=== PATIENT | female | born 1995 | race Caucasian/White ===

== ENCOUNTER 2021-07-20 07:49 | Inpatient (IN) | payer OTHER ==
[~2021-07-20] VITALS: Ht 167.6 cm; Wt 105.6 kg
[2021-07-20 09:00] LABS: HEMOGLOBIN 13.1 g/dl (12.0-15.5); MEAN CORPUSCULAR HEMOGLOBIN 31.6 pg (27.0-33.0); MEAN CORPUSCULAR HGB CONC 33.6 g/dl (32.0-36.5); MEAN CORPUSCULAR VOLUME 94.2 fl (80.0-96.0); PLATELET COUNT, AUTOMATED 211 10^3/uL (150-450); RED BLOOD COUNT 4.14 10^6/uL (4.00-5.40); WHITE BLOOD COUNT 15.9 10^3/uL (4.0-10.0)
[2021-07-20] MEDS ORDERED: PRENTAB9 PO (09:13)
[2021-07-20] MEDS ORDERED: LACTATED RINGER'S 1000 ML IV STA (10:33)
[2021-07-20] MEDS ORDERED: BICITRA 30ML SOLN UDC PO ONE (10:35)
[2021-07-20] MEDS ORDERED: ceFAZolin SOD 2 GM in IV 1 EA IV ONE (10:35)
[2021-07-20] MEDS ORDERED: METHYLERGONOVINE MALEATE 0.2 MG/ML VIAL (J2210) IM PRN (10:35)
[2021-07-20] MEDS ORDERED: LR 1,000 ML IV SCH (10:35)
[2021-07-20] MEDS ORDERED: OXYTOCIN DRIP 30 UNITS in IV 1 EA IV PRN (10:35)
[2021-07-20] MEDS ORDERED: AZITHROMYCIN INJ 500 MG, VIAL MATE ADAPTER 1 EACH in NS 250 ML IV ONE (12:20)
[2021-07-20] MEDS ORDERED: AZITHROMYCIN INJ 500MG VIAL As Ordered ONE (12:25)
[2021-07-20] MEDS ORDERED: MORPHINE PRES-FREE INJ 10 MG/10 ML VIAL (J2274) As Ordered ONE (12:30)
[2021-07-20] MEDS ORDERED: OXYTOCIN 30 UNITS IN 0.9% NaCl 500ML IV BAG (J2590) As Ordered ONE ×2 (12:30→13:53)
[2021-07-20] MEDS ORDERED: ONDANSETRON 4MG/2ML VIAL As Ordered ONE (12:41)
[2021-07-20] MEDS ORDERED: diphenhydrAMINE 50MG/ML VIAL (J1200) IV PRN (12:55)
[2021-07-20] MEDS ORDERED: ONDANSETRON 4MG/2ML VIAL IV PRN ×3 (12:55→14:15)
[2021-07-20] MEDS ORDERED: NALOXONE INJ 0.4MG/1ML VIAL (J2310 PER 1MG) IV PRN ×2 (12:55)
[2021-07-20] MEDS ORDERED: NALBUPHINE HCL 10 MG/ML AMP (J2300) IV PRN (12:55)
[2021-07-20] MEDS ORDERED: METOCLOPRAMIDE INJ 10MG/2ML VIAL (J2765 PER 1) IV PRN ×2 (12:55→14:15)
[2021-07-20 13:09] LABS: HIV 1&2 SCREEN CENTAUR NEGATIVE (NEGATIVE)
[2021-07-20] MEDS ORDERED: PHENYLephrine 500MCG 5ML (100MCG/ML) SYRINGE As Ordered ONE (13:16)
[2021-07-20] MEDS ORDERED: KETOROLAC 60MG 2ML VIAL As Ordered ONE (13:16)
[2021-07-20] MEDS ORDERED: dexameTHASONE 4 MG/ML 1ML VIAL (J1100 PER 1MG) As Ordered ONE (13:26)
[2021-07-20] MEDS ORDERED: fentaNYL 100 MCG/2 ML INJECTION As Ordered ONE ×2 (13:35→14:20)
[2021-07-20] MEDS ORDERED: RHOGAM 300 MCG (1500 IU) INJ (J2790) IM SCH (13:55)
[2021-07-20] MEDS ORDERED: OXYTOCIN DRIP 30 UNITS in IV 1 EA IV SCH (13:55)
[2021-07-20] MEDS ORDERED: SIMETHICONE 80MG CHEW TAB PO PRN (13:55)
[2021-07-20] MEDS ORDERED: MOM 30ML SUSPENSION UDC PO PRN (13:55)
[2021-07-20] MEDS ORDERED: MEASLES,MUMPS,RUBELLA VACCINE INJ (MMR-II) (90707) SC SCH (13:55)
[2021-07-20] MEDS ORDERED: PERCOCET 5MG/325MG TAB PO PRN ×2 (13:55)
[2021-07-20] MEDS ORDERED: oxyCODONE 5MG TAB PO PRN (14:15)
[2021-07-20] MEDS ORDERED: MEPERIDINE INJ 25 MG/ML VIAL (J2175) IV PRN (14:15)
[2021-07-20] MEDS: fentaNYL 100 MCG/2 ML INJECTION IV PRN ×2 (14:24→14:30)
[2021-07-20] MEDS: LR 1,000 ML IV SCH ×2 (14:29→21:55)
[2021-07-20] MEDS ORDERED: METOCLOPRAMIDE INJ 10MG/2ML VIAL (J2765 PER 1) As Ordered ONE (14:33)
[2021-07-20] MEDS ORDERED: oxyCODONE 5MG TAB As Ordered ONE (15:26)
[2021-07-20 15:50] VITALS: BP 101/51
[2021-07-20 16:00] VITALS: BP 101/51
[2021-07-20] MEDS: PRENATAL VITAMINS CHEWABLE TABLET PO SCH (16:00)
[2021-07-20 16:20] VITALS: BP 110/53
[2021-07-20 17:20] VITALS: BP 92/54
[2021-07-20 18:20] VITALS: BP 111/59
[2021-07-20] MEDS: buPROPion (WELLBUTRIN SR) 100 MG SR TAB PO SCH (20:09)
[2021-07-20] MEDS: DOCUSATE SODIUM 100MG CAPSULE PO SCH (20:09)
[2021-07-20] MEDS: KETOROLAC 30 MG/ML 1ML VIAL IV SCH (20:10)
[2021-07-20 22:30] VITALS: BP 117/67
[2021-07-21] MEDS: KETOROLAC 30 MG/ML 1ML VIAL IV SCH ×2 (02:12→08:19)
[2021-07-21 02:13] VITALS: BP 119/59
[2021-07-21 06:38] VITALS: BP 115/56
[2021-07-21 08:04] VITALS: BP 115/56
[2021-07-21] MEDS: DOCUSATE SODIUM 100MG CAPSULE PO SCH ×2 (08:19→21:31)
[2021-07-21] MEDS: PRENATAL VITAMINS CHEWABLE TABLET PO SCH (08:19)
[2021-07-21] MEDS: buPROPion (WELLBUTRIN SR) 100 MG SR TAB PO SCH ×2 (08:19→21:32)
[2021-07-21 08:29] LABS: HEMATOCRIT 28.2 % (36.0-47.0); HEMOGLOBIN 9.4 g/dl (12.0-15.5); MEAN CORPUSCULAR HEMOGLOBIN 31.6 pg (27.0-33.0); MEAN CORPUSCULAR HGB CONC 33.3 g/dl (32.0-36.5); MEAN CORPUSCULAR VOLUME 94.9 fl (80.0-96.0); PLATELET COUNT, AUTOMATED 195 10^3/uL (150-450); RED BLOOD COUNT 2.97 10^6/uL (4.00-5.40); WHITE BLOOD COUNT 17.3 10^3/uL (4.0-10.0)
[2021-07-21 14:00] VITALS: BP 119/53
[2021-07-21] MEDS: IBUPROFEN 800 MG TAB PO SCH (15:44)
[2021-07-21 18:00] VITALS: BP 137/93
[2021-07-21 23:30] VITALS: BP 122/74
[2021-07-22] MEDS: IBUPROFEN 800 MG TAB PO SCH ×3 (00:03→16:03)
[2021-07-22 06:00] VITALS: BP 120/56
[2021-07-22] MEDS: PRENATAL VITAMINS CHEWABLE TABLET PO SCH (08:32)
[2021-07-22] MEDS: DOCUSATE SODIUM 100MG CAPSULE PO SCH (08:32)
[2021-07-22] MEDS: buPROPion (WELLBUTRIN SR) 100 MG SR TAB PO SCH (08:33)
[2021-07-22] MEDS ORDERED: IBUP80TA PO (11:35)
[2021-07-22] MEDS ORDERED: COLA100C5 PO (11:35)
[2021-07-22] MEDS ORDERED: BUPR10TASR PO (11:35)
[2021-07-22] MEDS ORDERED: PERCOCET PO (11:35)
== END 2021-07-22 16:30 | disposition home or self-care (01) | DRG 540 ==
LOC: M LDO 07:49 → M LDI 08:30 → M OBS 15:56
PROVIDERS: ADMIT Advanced Practice Midwife; ATTEND Advanced Practice Midwife
PROC: 10D00Z1 Extraction of Products of Conception, Low, Open Approach (ICD-10-PCS; principal; 2021-07-20 12:51)
DX: O32.2XX0 Maternal care for transverse and oblique lie, not applicable or unspecified (principal); O42.113 Preterm premature rupture of membranes, onset of labor more than 24 hours following rupture, third trimester; Z37.0 Single live birth; Z3A.36 36 weeks gestation of pregnancy; O09.30 Supervision of pregnancy with insufficient antenatal care, unspecified trimester

== ENCOUNTER → 2022-04-23 | Outpatient (CLI) | payer MEDICAID, OTHER ==
[~2022-04-23] MED LIST: BUPR10TASR PO; COLA100C5 PO; IBUP80TA PO; PERCOCET PO; PRENTAB9 PO
[2022-04-23 17:35] LABS: BASO # 0.1 10^3/uL (0.0-0.2); BASO % 0.6 % (0.0-1.0); EOS # 0.1 10^3/uL (0.0-0.5); HEMATOCRIT 45.9 % (36.0-47.0); LYMPH % 21.6 % (24.0-44.0); MEAN CORPUSCULAR HEMOGLOBIN 30.8 pg (27.0-33.0); MEAN CORPUSCULAR HGB CONC 32.7 g/dl (32.0-36.5); MEAN CORPUSCULAR VOLUME 94.3 fl (80.0-96.0); MONO # 0.8 10^3/uL (0.0-0.8); MONO % 8.5 % (2.0-8.0); NEUTROPHILS # 6.4 10^3/uL (1.5-8.5); PLATELET COUNT, AUTOMATED 343 10^3/uL (150-450); RED BLOOD COUNT 4.87 10^6/uL (4.00-5.40); WHITE BLOOD COUNT 9.4 10^3/uL (4.0-10.0)
[2022-04-23 18:39] LABS: ALBUMIN 4.4 GM/DL (3.2-5.2); BILIRUBIN,TOTAL 1.2 MG/DL (0.2-1.0); CALCIUM LEVEL 9.8 MG/DL (8.5-10.1); CHOLESTEROL RISK RATIO 4.651 (<5); CREATININE FOR GFR 1.24 MG/DL (0.55-1.30); FREE T4 1.3 NG/DL (0.76-1.46); GLOMERULAR FILTRATION RATE 54.8 (>60); POTASSIUM SERUM 4.1 MEQ/L (3.5-5.1); THYROID STIMULATING HORMONE 0.718 uIU/ML (0.358-3.740); TOTAL PROTEIN 8.1 GM/DL (6.4-8.2)
[2022-04-23 19:08] LABS: TOTAL 25(OH) VITAMIN D 16.1 NG/ML (30.0-100.0)
== END ==
LOC: M PLALAB 14:51
PROVIDERS: ATTEND Nurse Practitioner Family
DX: R63.5 Abnormal weight gain (principal)

== ENCOUNTER 2022-07-11 08:25 | Inpatient (IN) | payer OTHER, MEDICAID ==
[~2022-07-11] VITALS: Ht 167.6 cm; Wt 84.2 kg
[2022-07-11] MEDS ORDERED: VITA1CAP25 PO (08:56)
[2022-07-11] MEDS ORDERED: RISP-7 PO (08:56)
[2022-07-11 10:56] LABS: HCG, SERUM QUALITATIVE NEGATIVE (NEGATIVE)
[2022-07-11 10:59] LABS: AMPHETAMINES LEVEL URINE NEGATIVE (NEGATIVE); BARBITURATES URINE NEGATIVE (NEGATIVE); BENZODIAZEPINES URINE NEGATIVE (NEGATIVE); CANNABINOIDS URINE NEGATIVE (NEGATIVE); COCAINE METABOLITE URINE NEGATIVE (NEGATIVE); METHADONE URINE NEGATIVE (NEGATIVE); OPIATES URINE NEGATIVE (NEGATIVE); PHENCYCLIDINE URINE NEGATIVE (NEGATIVE)
[2022-07-11 11:01] LABS: ETHYL ALCOHOL (ETHANOL) 0.003 % (0.000-0.010)
[2022-07-11 11:02] LABS: ACETAMINOPHEN LEVEL < 2.0 UG/ML (10.0-20.0); SALICYLATE LEVEL < 3.0 MG/DL (<30)
[2022-07-11 11:03] LABS: ALBUMIN 4.1 G/DL (3.2-5.2); ALKALINE PHOSPHATASE 77 U/L (46-116); ALT/SGPT 42 U/L (7.0-40); AST/SGOT 34 U/L (<34); BILIRUBIN,DIRECT 0.5 MG/DL (<0.4); BILIRUBIN,TOTAL 1.4 MG/DL (0.3-1.2); BLOOD UREA NITROGEN 8 MG/DL (9-23); CALCIUM LEVEL 9.5 MG/DL (8.5-10.1); CARBON DIOXIDE LEVEL 25 MMOL/L (20-31); CHLORIDE LEVEL 103 MMOL/L (98-107); CREATININE FOR GFR 0.83 MG/DL (0.55-1.30); GLOMERULAR FILTRATION RATE > 60.0 (>60); GLUCOSE, FASTING 110 MG/DL (60-100); POTASSIUM SERUM 3.4 MMOL/L (3.5-5.1); SODIUM LEVEL 139 MMOL/L (136-145); TOTAL PROTEIN 6.7 G/DL (5.7-8.2)
[2022-07-11 11:05] LABS: THYROID STIMULATING HORMONE 1.206 uIU/ML (0.55-4.78)
[2022-07-11 12:11] LABS: HEMATOCRIT 41.2 % (36.0-47.0); MEAN CORPUSCULAR HEMOGLOBIN 30.6 pg (27.0-33.0); PLATELET COUNT, AUTOMATED 271 10^3/uL (150-450); RED BLOOD COUNT 4.58 10^6/uL (4.00-5.40); WHITE BLOOD COUNT 9.6 10^3/uL (4.0-10.0)
[2022-07-11] MEDS ORDERED: HALOPERIDOL 5MG/ML 1ML VIAL IM ONE (14:50)
[2022-07-11] MEDS ORDERED: MIDAZOLAM INJ 2MG/2ML VIAL IM ONE (14:50)
[2022-07-11] MEDS ORDERED: diphenhydrAMINE 50MG/ML VIAL IM ONE (14:50)
[2022-07-11] MEDS ORDERED: diphenhydrAMINE 50MG/ML VIAL As Ordered ONE (14:51)
[2022-07-11] MEDS ORDERED: HALOPERIDOL 5MG/ML 1ML VIAL As Ordered ONE (14:51)
[2022-07-11] MEDS ORDERED: MIDAZOLAM 5MG/ML 1ML VIAL As Ordered ONE (14:51)
[2022-07-11] MEDS ORDERED: HOME MED LIST COMPLETE! XX SCH (18:20)
[2022-07-12] MEDS ORDERED: risperiDONE 0.5 MG TAB PO ONE (19:45)
[2022-07-12] MEDS ORDERED: traZODone 50 MG TAB PO PRN (20:55)
[2022-07-12] MEDS ORDERED: MAALOX 30 ML SUSP *UDC PO PRN (20:55)
[2022-07-12] MEDS ORDERED: ACETAMINOPHEN TAB 650MG DOSE (2X325MG) PO PRN (20:55)
[2022-07-12] MEDS: risperiDONE 1 MG TAB PO SCH (21:00)
[2022-07-12 23:55] VITALS: BP 123/79
[2022-07-13 06:20] VITALS: BP 128/68
[2022-07-13] MEDS ORDERED: SERTRALINE HCL 25 MG TABLET PO SCH (09:00)
[2022-07-13] MEDS: risperiDONE 0.5 MG TAB PO PRN (16:14)
[2022-07-13] MEDS ORDERED: POTASSIUM CHLORIDE 10MEQ SR TABLET PO ONE (16:55)
[2022-07-13] MEDS: MOM 30ML SUSPENSION UDC PO PRN (17:26)
[2022-07-13 18:35] VITALS: BP 132/92
[2022-07-13] MEDS: risperiDONE 1 MG TAB PO SCH (23:24)
[2022-07-14 06:38] VITALS: BP 138/88
[2022-07-14 07:18] LABS: CHOLESTEROL RISK RATIO 4.04 (<5); HDL CHOLESTEROL 47.2 MG/DL (>40)
[2022-07-14] MEDS: risperiDONE 0.5 MG TAB PO PRN (07:44)
[2022-07-14] MEDS: SERTRALINE HCL 25 MG TABLET PO SCH (08:35)
[2022-07-14] MEDS: risperiDONE 1 MG TAB PO SCH ×2 (12:35→22:01)
[2022-07-14] MEDS ORDERED: OLANZapine ORAL DISINTEGRATING TAB 5MG PO STA (16:18)
[2022-07-14 19:08] VITALS: BP 156/90
[2022-07-15] MEDS ORDERED: LORazepam 2 MG TAB PO ONE (01:00)
[2022-07-15] MEDS ORDERED: diphenhydrAMINE 50MG CAP PO ONE (01:00)
[2022-07-15] MEDS: risperiDONE 0.5 MG TAB PO PRN ×2 (04:43→19:05)
[2022-07-15] MEDS: risperiDONE 1 MG TAB PO SCH ×2 (07:26→21:00)
[2022-07-15] MEDS: SERTRALINE HCL 25 MG TABLET PO SCH (07:27)
[2022-07-15] MEDS: DIVALPROEX 250MG *ER* TAB PO SCH ×2 (09:00→19:06)
[2022-07-15] MEDS ORDERED: LORazepam 2 MG TAB PO STA (09:33)
[2022-07-15] MEDS ORDERED: chlorproMAZINE INJ 50MG/2ML AMP IM STA ×2 (10:01→17:34)
[2022-07-15] MEDS ORDERED: LORazepam 2 MG/ML VIAL IM STA (10:22)
[2022-07-15] MEDS: LORazepam 1 MG TAB PO PRN (19:06)
[2022-07-15 19:10] VITALS: BP 134/83
[2022-07-15] MEDS: RAMELTEON 8 MG TAB (ROZEREM) PO SCH (21:00)
[2022-07-16] MEDS: DIVALPROEX 250MG *ER* TAB PO SCH (10:22)
[2022-07-16] MEDS: risperiDONE 0.5 MG TAB PO PRN (10:22)
[2022-07-16] MEDS: LORazepam 1 MG TAB PO PRN ×2 (10:22→23:05)
[2022-07-16] MEDS: risperiDONE 1 MG TAB PO SCH ×3 (10:25→23:02)
[2022-07-16 17:28] VITALS: BP 126/90
[2022-07-16 20:05] VITALS: BP 123/79
[2022-07-16] MEDS ORDERED: GI COCKTAIL 50ML BTL(HYOSCYAMINE/MAALOX/LIDOCAINE VISCOUS)(1:3:1) PO ONE (20:25)
[2022-07-16] MEDS ORDERED: DOCUSATE SODIUM 100MG CAPSULE PO PRN (20:45)
[2022-07-16] MEDS: RAMELTEON 8 MG TAB (ROZEREM) PO SCH (21:00)
[2022-07-17 06:39] VITALS: BP 111/65
[2022-07-17] MEDS: risperiDONE 1 MG TAB PO SCH ×2 (10:19→21:26)
[2022-07-17 17:20] VITALS: BP 135/85
[2022-07-17] MEDS: LORazepam 1 MG TAB PO PRN (17:47)
[2022-07-17] MEDS: DIVALPROEX 500MG *ER* TAB PO SCH (21:26)
[2022-07-17] MEDS: RAMELTEON 8 MG TAB (ROZEREM) PO SCH (21:26)
[2022-07-18] MEDS: risperiDONE 1 MG TAB PO SCH ×2 (09:00→21:00)
[2022-07-18] MEDS: DIVALPROEX 500MG *ER* TAB PO SCH (21:00)
[2022-07-18] MEDS: RAMELTEON 8 MG TAB (ROZEREM) PO SCH (21:00)
[2022-07-19] MEDS: risperiDONE 1 MG TAB PO SCH ×2 (08:33→19:04)
[2022-07-19] MEDS: LORazepam 1 MG TAB PO PRN (08:34)
[2022-07-19] MEDS: **PENDING PPD ENTRY XX SCH (09:00)
[2022-07-19] MEDS ORDERED: TUBERCULIN PPD 5 UNITS/0.1 ML ID ONE (10:00)
[2022-07-19] MEDS ORDERED: LORazepam 2 MG TAB PO PRN (10:55)
[2022-07-19] MEDS: DIVALPROEX 250MG *ER* TAB PO SCH (20:15)
[2022-07-19] MEDS: RAMELTEON 8 MG TAB (ROZEREM) PO SCH (20:15)
[2022-07-20] MEDS ORDERED: diphenhydrAMINE 50MG/ML VIAL IM STA (01:32)
[2022-07-20] MEDS ORDERED: HALOPERIDOL 5MG/ML 1ML VIAL IM STA (01:32)
[2022-07-20] MEDS ORDERED: LORazepam 2 MG/ML VIAL IM STA (01:32)
[2022-07-20] MEDS: **PENDING PPD ENTRY XX SCH (09:00)
[2022-07-20] MEDS: LORazepam 2 MG TAB PO SCH ×3 (09:00→21:51)
[2022-07-20] MEDS: RAMELTEON 8 MG TAB (ROZEREM) PO SCH (21:51)
[2022-07-20] MEDS: DIVALPROEX 250MG *ER* TAB PO SCH (21:51)
[2022-07-21] MEDS: **PENDING PPD ENTRY XX SCH (09:00)
[2022-07-21] MEDS ORDERED: PPD DOCUMENTATION ENTRY MISC XX SCH (10:00)
[2022-07-21 11:47] VITALS: BP_SYST 118; BP_SYST 136; BP_SYST 146; BP_DIAS 75; BP_DIAS 84; BP_DIAS 98
[2022-07-21] MEDS: MOM 30ML SUSPENSION UDC PO PRN (12:01)
[2022-07-21] MEDS: RAMELTEON 8 MG TAB (ROZEREM) PO SCH (20:21)
[2022-07-21] MEDS: LORazepam 2 MG TAB PO SCH (20:21)
[2022-07-21] MEDS: DIVALPROEX 250MG *ER* TAB PO SCH (20:21)
[2022-07-22] MEDS: **PENDING PPD ENTRY XX SCH (09:00)
[2022-07-22] MEDS: LORazepam 2 MG TAB PO SCH ×2 (10:32→20:10)
[2022-07-22] MEDS: DIVALPROEX 250MG *ER* TAB PO SCH (10:32)
[2022-07-22] MEDS ORDERED: HALOPERIDOL DECANOATE 100 MG/ML 1ML VIAL IM ONE (13:00)
[2022-07-22] MEDS: RAMELTEON 8 MG TAB (ROZEREM) PO SCH (20:10)
[2022-07-22] MEDS ORDERED: DIVALPROEX 250MG *ER* TAB PO SCH (21:00)
[2022-07-23] MEDS ORDERED: HALO5TAB33 PO (08:40)
[2022-07-23] MEDS ORDERED: LORA1TAB4 PO (08:40)
[2022-07-23] MEDS ORDERED: TRAZ-252 PO (08:40)
[2022-07-23] MEDS ORDERED: DEPA250T2 PO (08:40)
[2022-07-23] MEDS ORDERED: RAME8TAB2 PO (08:40)
[2022-07-23] MEDS ORDERED: HALD50IN4 IM (08:42)
[2022-07-23] MEDS: **PENDING PPD ENTRY XX SCH (09:00)
[2022-07-23] MEDS: LORazepam 2 MG TAB PO SCH (09:32)
== END 2022-07-23 13:34 | disposition home or self-care (01) | DRG 753 ==
LOC: M ED 08:25 → M ED INP 07-12 20:54 → M PSY 07-12 23:54 → M ED INP 07-12 23:55 → M PSY 07-12 23:56
PROVIDERS: ADMIT Student in an Organized Health Care Education/Training Program; ATTEND Student in an Organized Health Care Education/Training Program
DX: F31.60 Bipolar disorder, current episode mixed, unspecified (principal); F25.0 Schizoaffective disorder, bipolar type; R10.9 Unspecified abdominal pain; E87.6 Hypokalemia; R45.851 Suicidal ideations; R07.89 Other chest pain; Z20.822 Contact with and (suspected) exposure to COVID-19; Z79.899 Other long term (current) drug therapy; Z91.14 Patient's other noncompliance with medication regimen; Z78.1 Physical restraint status

== ENCOUNTER 2022-08-31 13:35 | Inpatient (IN) | payer MEDICAID, OTHER ==
[~2022-08-31] VITALS: Ht 152.4 cm; Wt 82.9 kg
[~2022-08-31 13:35] MED LIST changes: +DEPA250T2 PO; +HALD50IN4 IM; +HALO5TAB33 PO; +LORA1TAB4 PO; +RAME8TAB2 PO; +RISP-7 PO; +TRAZ-252 PO; +VITA1CAP25 PO
[2022-08-31 14:45] LABS: BASO % 0.2 % (0.0-1.0); EOS % 0.2 % (0.0-3.0); HEMATOCRIT 45.4 % (36.0-47.0); HEMOGLOBIN 14.7 g/dl (12.0-15.5); LYMPH # 1.6 10^3/uL (1.5-5.0); LYMPH % 13.5 % (24.0-44.0); MEAN CORPUSCULAR HEMOGLOBIN 31.1 pg (27.0-33.0); MEAN CORPUSCULAR HGB CONC 32.4 g/dl (32.0-36.5); MONO # 0.9 10^3/uL (0.0-0.8); MONO % 7.7 % (2.0-8.0); NEUTROPHILS # 9.4 10^3/uL (1.5-8.5); NEUTROPHILS % 77.8 % (36.0-66.0); PLATELET COUNT, AUTOMATED 303 10^3/uL (150-450); RED BLOOD COUNT 4.73 10^6/uL (4.00-5.40)
[2022-08-31 14:49] LABS: PHENCYCLIDINE URINE NEGATIVE (NEGATIVE)
[2022-08-31 14:50] LABS: AMPHETAMINES LEVEL URINE NEGATIVE (NEGATIVE); BARBITURATES URINE NEGATIVE (NEGATIVE); BENZODIAZEPINES URINE NEGATIVE (NEGATIVE); CANNABINOIDS URINE NEGATIVE (NEGATIVE); COCAINE METABOLITE URINE NEGATIVE (NEGATIVE); METHADONE URINE NEGATIVE (NEGATIVE); OPIATES URINE NEGATIVE (NEGATIVE)
[2022-08-31 14:56] LABS: RSV AMPLIFICATION NEGATIVE (NEGATIVE)
[2022-08-31 14:59] LABS: ETHYL ALCOHOL (ETHANOL) < 0.003 % (0.000-0.010)
[2022-08-31 15:01] LABS: ALBUMIN 4.2 G/DL (3.2-5.2); ALKALINE PHOSPHATASE 91 U/L (46-116); ALT/SGPT 10 U/L (7.0-40); AST/SGOT 13 U/L (<34); BILIRUBIN,DIRECT 0.7 MG/DL (<0.4); BLOOD UREA NITROGEN 11 MG/DL (9-23); CALCIUM LEVEL 9.4 MG/DL (8.5-10.1); CARBON DIOXIDE LEVEL 26 MMOL/L (20-31); CHLORIDE LEVEL 103 MMOL/L (98-107); CPK CREATINE PHOSPHOKINASE 112 U/L (34-145); GLOMERULAR FILTRATION RATE > 60.0 (>60); GLUCOSE, FASTING 96 MG/DL (60-100); POTASSIUM SERUM 3.7 MMOL/L (3.5-5.1); SALICYLATE LEVEL < 3.0 MG/DL (<30); SODIUM LEVEL 138 MMOL/L (136-145); TOTAL PROTEIN 7.2 G/DL (5.7-8.2)
[2022-08-31 15:05] LABS: THYROID STIMULATING HORMONE 0.921 uIU/ML (0.55-4.78)
[2022-08-31 15:06] LABS: ACETAMINOPHEN LEVEL < 2.0 UG/ML (10.0-20.0)
[2022-08-31 15:08] LABS: HCG, SERUM QUALITATIVE NEGATIVE (NEGATIVE)
[2022-08-31 16:30] LABS: VALPROIC ACID (DEPAKOTE) < 3.0 UG/ML (50.0-100.0)
[2022-08-31] MEDS ORDERED: RISP-8 PO (17:30)
[2022-08-31] MEDS ORDERED: IBUP-1720 PO (17:33)
[2022-08-31] MEDS ORDERED: HOME MED LIST COMPLETE! XX SCH (17:35)
[2022-08-31] MEDS ORDERED: LORazepam 1 MG TAB PO STA (20:52)
[2022-09-01] MEDS ORDERED: IBUPROFEN 400MG TAB PO PRN (00:15)
[2022-09-01] MEDS ORDERED: OLANZapine ORAL DISINTEGRATING TAB 5MG PO PRN (00:15)
[2022-09-01] MEDS ORDERED: MOM 30ML SUSPENSION UDC PO PRN (00:15)
[2022-09-01] MEDS ORDERED: traZODone 50 MG TAB PO PRN (00:15)
[2022-09-01] MEDS ORDERED: MAALOX 30 ML SUSP *UDC PO PRN (00:15)
[2022-09-01] MEDS: risperiDONE 2 MG TAB PO SCH ×2 (00:45→20:49)
[2022-09-01 01:34] VITALS: BP 122/84
[2022-09-01] MEDS ORDERED: BENZTROPINE MESYLATE 2MG/2ML VIAL IM STA (07:44)
[2022-09-01] MEDS ORDERED: LORazepam 2 MG TAB PO PRN (08:20)
[2022-09-01 08:25] VITALS: BP 111/69
[2022-09-01] MEDS ORDERED: LORazepam 2 MG/ML 1ML VIAL IM STA (09:29)
[2022-09-01] MEDS ORDERED: LORazepam 2 MG/ML 1ML VIAL IM ONE (10:35)
[2022-09-02] MEDS: LORazepam 2 MG TAB PO SCH ×3 (12:08→20:53)
[2022-09-02] MEDS ORDERED: HALOPERIDOL 5MG/ML 1ML VIAL IM ONE (14:40)
[2022-09-02] MEDS ORDERED: diphenhydrAMINE 50MG/ML VIAL IM ONE (14:40)
[2022-09-02] MEDS ORDERED: LORazepam 2 MG/ML 1ML VIAL IM ONE (14:40)
[2022-09-02 19:01] VITALS: BP 144/57
[2022-09-02] MEDS: risperiDONE 2 MG TAB PO SCH (20:53)
[2022-09-02] MEDS: LITHIUM CARBONATE 300 MG CAP PO SCH (20:53)
[2022-09-03] MEDS: risperiDONE 2 MG TAB PO SCH (08:25)
[2022-09-03] MEDS: LORazepam 2 MG TAB PO SCH ×4 (08:25→22:40)
[2022-09-03] MEDS: LITHIUM CARBONATE 300 MG CAP PO SCH ×4 (08:25→22:40)
[2022-09-03 13:31] VITALS: BP 118/86
[2022-09-03 18:22] VITALS: BP 122/86
[2022-09-04 06:48] VITALS: BP 122/86
[2022-09-04] MEDS: LITHIUM CARBONATE 300 MG CAP PO SCH ×2 (07:58→20:16)
[2022-09-04] MEDS: LORazepam 2 MG TAB PO SCH ×3 (07:58→20:16)
[2022-09-04] MEDS: risperiDONE 1 MG TAB PO SCH ×2 (09:00→21:00)
[2022-09-04] MEDS: BENZTROPINE 1 MG TAB PO SCH ×2 (09:00→20:21)
[2022-09-04] MEDS: PROPRANOLOL 20 MG TAB PO SCH ×2 (09:00→20:21)
[2022-09-05 06:31] VITALS: BP 142/94
[2022-09-05] MEDS: LITHIUM CARBONATE 300 MG CAP PO SCH ×2 (09:47→21:52)
[2022-09-05] MEDS: PROPRANOLOL 20 MG TAB PO SCH ×2 (09:47→21:56)
[2022-09-05] MEDS: BENZTROPINE 1 MG TAB PO SCH ×2 (09:47→21:52)
[2022-09-05] MEDS: LORazepam 2 MG TAB PO SCH ×3 (09:47→21:52)
[2022-09-05] MEDS: risperiDONE 2 MG TAB PO SCH ×2 (09:47→21:51)
[2022-09-05 16:40] VITALS: BP 121/79
[2022-09-06 06:33] VITALS: BP 118/78
[2022-09-06] MEDS ORDERED: LORazepam 1 MG TAB PO SCH (09:00)
[2022-09-06] MEDS: LITHIUM CARBONATE 300 MG CAP PO SCH ×3 (09:27→21:00)
[2022-09-06] MEDS: BENZTROPINE 1 MG TAB PO SCH ×3 (09:27→21:00)
[2022-09-06] MEDS: risperiDONE 2 MG TAB PO SCH ×3 (09:27→21:00)
[2022-09-06] MEDS: PROPRANOLOL 20 MG TAB PO SCH ×3 (09:32→21:00)
[2022-09-06] MEDS ORDERED: PILL CUTTER 1 EACH XX PRN (10:25)
[2022-09-06] MEDS: LORazepam 2 MG TAB PO SCH ×3 (12:10→21:00)
[2022-09-06] MEDS: LORazepam 1 MG TAB PO SCH ×3 (12:10→21:00)
[2022-09-06 15:33] VITALS: BP 124/80
[2022-09-07] MEDS: LORazepam 1 MG TAB PO SCH ×3 (08:30→21:19)
[2022-09-07] MEDS: BENZTROPINE 1 MG TAB PO SCH ×2 (08:30→21:19)
[2022-09-07] MEDS: LORazepam 2 MG TAB PO SCH ×3 (08:31→21:19)
[2022-09-07] MEDS: LITHIUM CARBONATE 300 MG CAP PO SCH ×2 (08:31→21:19)
[2022-09-07] MEDS: risperiDONE 2 MG TAB PO SCH ×2 (08:32→21:19)
[2022-09-07] MEDS: PROPRANOLOL 20 MG TAB PO SCH ×2 (08:35→21:19)
[2022-09-07] MEDS ORDERED: PALIPERIDONE PAL 234MG/1.5ML INJ (INVEGA)(FREE PSY INPT ONLY) IM ONE ×2 (10:50→13:00)
[2022-09-08] MEDS: risperiDONE 1 MG TAB PO SCH ×2 (09:18→20:32)
[2022-09-08] MEDS: LORazepam 2 MG TAB PO SCH ×3 (09:18→20:31)
[2022-09-08] MEDS: BENZTROPINE 1 MG TAB PO SCH ×2 (09:18→20:31)
[2022-09-08] MEDS: LITHIUM CARBONATE 300 MG CAP PO SCH ×2 (09:18→20:32)
[2022-09-08] MEDS: LORazepam 1 MG TAB PO SCH ×3 (09:19→20:32)
[2022-09-08] MEDS: PROPRANOLOL 20 MG TAB PO SCH ×2 (09:19→20:32)
[2022-09-08 17:55] VITALS: BP 124/70
[2022-09-09 06:55] VITALS: BP 120/84
[2022-09-09] MEDS: LITHIUM CARBONATE 300 MG CAP PO SCH ×2 (08:55→20:56)
[2022-09-09] MEDS: risperiDONE 1 MG TAB PO SCH ×2 (08:55→20:55)
[2022-09-09] MEDS: BENZTROPINE 1 MG TAB PO SCH ×2 (08:55→20:56)
[2022-09-09] MEDS: LORazepam 1 MG TAB PO SCH ×3 (08:55→20:55)
[2022-09-09] MEDS: LORazepam 2 MG TAB PO SCH ×3 (08:55→20:56)
[2022-09-09] MEDS: PROPRANOLOL 20 MG TAB PO SCH ×2 (09:00→20:58)
[2022-09-09 18:21] VITALS: BP 133/85
[2022-09-10 06:40] VITALS: BP 130/94
[2022-09-10] MEDS ORDERED: PALIPERIDONE PAL 156MG/1ML INJ(INVEGA)(FREE PSY INPT ONLY) IM ONE (07:00)
[2022-09-10] MEDS: LITHIUM CARBONATE 300 MG CAP PO SCH ×2 (09:06→20:32)
[2022-09-10] MEDS: BENZTROPINE 1 MG TAB PO SCH ×2 (09:07→20:32)
[2022-09-10] MEDS: LORazepam 1 MG TAB PO SCH ×3 (09:07→20:33)
[2022-09-10] MEDS: LORazepam 2 MG TAB PO SCH ×3 (09:07→20:32)
[2022-09-10] MEDS: PROPRANOLOL 20 MG TAB PO SCH ×2 (09:08→20:32)
[2022-09-10] MEDS: risperiDONE 1 MG TAB PO SCH ×2 (09:08→20:33)
[2022-09-10 19:09] VITALS: BP 130/78
[2022-09-11 06:07] VITALS: BP 128/88
[2022-09-11 08:24] VITALS: BP 122/72
[2022-09-11] MEDS: LITHIUM CARBONATE 300 MG CAP PO SCH ×2 (08:28→20:19)
[2022-09-11] MEDS: BENZTROPINE 1 MG TAB PO SCH ×2 (08:28→20:16)
[2022-09-11] MEDS: risperiDONE 1 MG TAB PO SCH ×2 (08:29→20:18)
[2022-09-11] MEDS: PROPRANOLOL 20 MG TAB PO SCH ×2 (08:29→20:18)
[2022-09-11] MEDS: LORazepam 1 MG TAB PO SCH ×3 (08:29→20:18)
[2022-09-11] MEDS: LORazepam 2 MG TAB PO SCH ×3 (08:29→20:18)
[2022-09-11 19:08] VITALS: BP 130/78
[2022-09-12] MEDS: LORazepam 2 MG TAB PO SCH ×3 (09:52→21:05)
[2022-09-12] MEDS: LORazepam 1 MG TAB PO SCH ×3 (09:52→21:05)
[2022-09-12] MEDS: risperiDONE 1 MG TAB PO SCH ×2 (09:53→21:05)
[2022-09-12] MEDS: LITHIUM CARBONATE 300 MG CAP PO SCH ×2 (09:53→21:05)
[2022-09-12] MEDS: BENZTROPINE 1 MG TAB PO SCH ×2 (09:53→21:05)
[2022-09-12] MEDS: PROPRANOLOL 20 MG TAB PO SCH ×2 (10:00→21:05)
[2022-09-12 18:24] VITALS: BP 120/78
[2022-09-13 06:34] VITALS: BP 117/67
[2022-09-13] MEDS: risperiDONE 1 MG TAB PO SCH ×2 (09:18→20:32)
[2022-09-13] MEDS: LITHIUM CARBONATE 300 MG CAP PO SCH ×2 (09:19→20:32)
[2022-09-13] MEDS: LORazepam 1 MG TAB PO SCH ×3 (09:19→20:31)
[2022-09-13] MEDS: LORazepam 2 MG TAB PO SCH (09:19)
[2022-09-13] MEDS: PROPRANOLOL 20 MG TAB PO SCH ×2 (09:21→20:31)
[2022-09-13] MEDS: BENZTROPINE 1 MG TAB PO SCH ×2 (09:22→20:31)
[2022-09-13 18:56] VITALS: BP 128/68
[2022-09-14 06:44] VITALS: BP 114/70
[2022-09-14 09:30] VITALS: BP 122/75
[2022-09-14] MEDS: LORazepam 1 MG TAB PO SCH (09:30)
[2022-09-14] MEDS: PROPRANOLOL 20 MG TAB PO SCH (09:30)
[2022-09-14] MEDS: BENZTROPINE 1 MG TAB PO SCH (09:30)
[2022-09-14] MEDS: LITHIUM CARBONATE 300 MG CAP PO SCH (09:31)
[2022-09-14] MEDS: risperiDONE 1 MG TAB PO SCH (09:31)
[2022-09-14] MEDS ORDERED: BENZ1TAB5 PO (10:46)
[2022-09-14] MEDS ORDERED: LITH300C PO (10:46)
[2022-09-14] MEDS ORDERED: RISP-8 PO (10:47)
[2022-09-14] MEDS ORDERED: PROP20TA PO (10:47)
[2022-09-14] MEDS ORDERED: INVE156I IM (10:47)
[2022-09-14] MEDS ORDERED: OLAN5ZYD PO (10:47)
[2022-09-14] MEDS ORDERED: ATIV1TAB7 PO (10:47)
== END 2022-09-14 15:10 | disposition home or self-care (01) | DRG 750 ==
LOC: EDBD 13:35 → M ED 13:35 → M ED INP 09-01 00:14 → M PSY 09-01 01:00
PROVIDERS: ADMIT Student in an Organized Health Care Education/Training Program; ATTEND Student in an Organized Health Care Education/Training Program
DX: F25.0 Schizoaffective disorder, bipolar type (principal); F20.2 Catatonic schizophrenia; F68.10 Factitious disorder imposed on self, unspecified; Z79.899 Other long term (current) drug therapy

== ENCOUNTER → 2022-11-05 | Outpatient (REF) | payer OTHER ==
[~2022-11-05] MED LIST changes: +ATIV1TAB7 PO; +BENZ1TAB5 PO; +IBUP-1720 PO; +INVE156I IM; +LITH300C PO; +LORA1TAB23 PO; -LORA1TAB4 PO; +OLAN5ZYD PO; +PROP20TA PO; +RISP-8 PO
[2022-11-05 18:55] LABS: BASO # 0.1 10^3/uL (0.0-0.2); BASO % 0.5 % (0.0-1.0); EOS # 0.3 10^3/uL (0.0-0.5); EOS % 2.4 % (0.0-3.0); HEMATOCRIT 41.8 % (36.0-47.0); HEMOGLOBIN 13.9 g/dl (12.0-15.5); LYMPH % 27.8 % (24.0-44.0); MEAN CORPUSCULAR HEMOGLOBIN 31.7 pg (27.0-33.0); MEAN CORPUSCULAR HGB CONC 33.3 g/dl (32.0-36.5); MEAN CORPUSCULAR VOLUME 95.2 fl (80.0-96.0); MONO # 0.7 10^3/uL (0.0-0.8); MONO % 6.9 % (2.0-8.0); NEUTROPHILS # 6.7 10^3/uL (1.5-8.5); PLATELET COUNT, AUTOMATED 331 10^3/uL (150-450); RED BLOOD COUNT 4.39 10^6/uL (4.00-5.40); WHITE BLOOD COUNT 10.8 10^3/uL (4.0-10.0)
[2022-11-05 19:24] LABS: ALKALINE PHOSPHATASE 89 U/L (46-116); ALT/SGPT 9 U/L (7.0-40); AST/SGOT 14 U/L (<34); BILIRUBIN,TOTAL 1.6 MG/DL (0.3-1.2); BLOOD UREA NITROGEN 11 MG/DL (9-23); CARBON DIOXIDE LEVEL 26 MMOL/L (20-31); CHLORIDE LEVEL 106 MMOL/L (98-107); CHOLESTEROL LEVEL 215 MG/DL (<200); CREATININE FOR GFR 0.97 MG/DL (0.55-1.30); GLOMERULAR FILTRATION RATE > 60.0 (>60); GLUCOSE, FASTING 73 MG/DL (60-100); SODIUM LEVEL 140 MMOL/L (136-145); THYROID STIMULATING HORMONE 1.213 uIU/ML (0.55-4.78); TOTAL PROTEIN 7.2 G/DL (5.7-8.2); TRIGLYCERIDES LEVEL 65 MG/DL (<150)
[2022-11-05 19:25] LABS: TOTAL 25(OH) VITAMIN D 30.3 NG/ML (20.0-100.0)
[2022-11-05 19:26] LABS: FREE T4 1.31 NG/DL (0.89-1.76)
== END ==
LOC: M SFHCPLAZ 17:20
PROVIDERS: ATTEND Nurse Practitioner Family
DX: E55.9 Vitamin D deficiency, unspecified (principal); E78.2 Mixed hyperlipidemia; R53.83 Other fatigue

== ENCOUNTER → 2023-03-11 | Outpatient (CLI) | payer OTHER ==
[2023-03-11 17:41] LABS: BASO % 0.1 % (0.0-1.0); EOS % 0.3 % (0.0-3.0); HEMATOCRIT 42.5 % (36.0-47.0); HEMOGLOBIN 14.2 g/dl (12.0-15.5); LYMPH # 1.8 10^3/uL (1.5-5.0); LYMPH % 13.6 % (24.0-44.0); MEAN CORPUSCULAR HEMOGLOBIN 30.9 pg (27.0-33.0); MEAN CORPUSCULAR HGB CONC 33.4 g/dl (32.0-36.5); MEAN CORPUSCULAR VOLUME 92.4 fl (80.0-96.0); MONO # 0.6 10^3/uL (0.0-0.8); MONO % 4.5 % (2.0-8.0); NEUTROPHILS # 10.8 10^3/uL (1.5-8.5); NEUTROPHILS % 80.9 % (36.0-66.0); PLATELET COUNT, AUTOMATED 305 10^3/uL (150-450); WHITE BLOOD COUNT 13.4 10^3/uL (4.0-10.0)
[2023-03-11 18:03] LABS: ALBUMIN 3.5 G/DL (3.2-5.2); ALKALINE PHOSPHATASE 80 U/L (46-116); ALT/SGPT 12 U/L (7.0-40); AST/SGOT 15 U/L (<34); BILIRUBIN,TOTAL 1.2 MG/DL (0.3-1.2); BLOOD UREA NITROGEN 13 MG/DL (9-23); CALCIUM LEVEL 8.9 MG/DL (8.5-10.1); CARBON DIOXIDE LEVEL 25 MMOL/L (20-31); CHLORIDE LEVEL 106 MMOL/L (98-107); CHOLESTEROL LEVEL 232 MG/DL (<200); CHOLESTEROL RISK RATIO 4.68 (<5); CREATININE FOR GFR 0.96 MG/DL (0.55-1.30); GLOMERULAR FILTRATION RATE > 60.0 (>60); GLUCOSE, FASTING 96 MG/DL (60-100); HDL CHOLESTEROL 49.5 MG/DL (>40); LDL CHOLESTEROL 148.3 MG/DL (<100); NON-HDL-C 182.5 MG/DL; POTASSIUM SERUM 4.4 MMOL/L (3.5-5.1); SODIUM LEVEL 137 MMOL/L (136-145); TOTAL PROTEIN 7.1 G/DL (5.7-8.2); TRIGLYCERIDES LEVEL 171 MG/DL (<150)
[2023-03-11 18:06] LABS: THYROID STIMULATING HORMONE 1.207 uIU/ML (0.55-4.78); TOTAL 25(OH) VITAMIN D 28.3 NG/ML (20.0-100.0)
[2023-03-11 18:07] LABS: FREE T4 1.05 NG/DL (0.89-1.76)
[2023-03-11 19:20] LABS: HEMOGLOBIN A1c 4.3 % (4.0-6.0)
== END ==
LOC: M PLALAB 16:26
PROVIDERS: ATTEND Nurse Practitioner Family
DX: M54.50 Low back pain, unspecified (principal); E55.9 Vitamin D deficiency, unspecified; E78.2 Mixed hyperlipidemia; R53.83 Other fatigue; R73.01 Impaired fasting glucose